=== PATIENT | male | born 1990 | race Caucasian/White ===

== ENCOUNTER 2021-08-21 19:41 | Emergency (ER) | payer MEDICAID, SELFPAY ==
--- NOTE | 2021-08-21 19:49 | ED_ITS ---
HPI - General Adult General Stated complaint: Rash/lump on eye Time Seen by Provider: 08/21/21 19:49 Source: patient Mode of arrival: ambulatory Limitations: no limitations History of Present Illness HPI narrative: Patient is a 30 year old male presenting to the emergency department today with a rash to his left eye and left arm. Patient states that he is an IV drug user and this rash has been developing for the last few weeks, getting worse. Patient states that he woke up this morning and his rash above his left eye is significantly worse. Patient states that it is throbbing and rates the pain at a 5/10. Patient denies any dizziness, lightheadedness, abdominal pain, nausea, vomiting, fever, chills, blurry vision, double vision, loss of vision, chest pain, difficulty breathing, shortness of breath, back pain, night sweats, pain with urination, increased urinary frequency, increased urinary urgency, blood in his urine or stool, syncope or a near syncopal episode, recent trauma or falls, bowel incontinence, bladder incontinence, bowel retention, bladder retention, or any other complaints at this time. Onset (ago): day(s) Location: face and upper extremity Severity: mild Severity scale (1-10): 5 Quality: aching Pain Consistency: constant Relieving factors: none Exacerbating factors: none Associated symptoms: denies other symptoms Related Data Allergies Allergy/AdvReac Type Severity Reaction Status Date / Time No Known Allergies Allergy Unverified 03/01/20 17:41 Review of Systems Constitutional: Constitutional: Reports no additional constitutional complaints, Denies chills, Denies fever(s) and Denies night sweats Eyes: Eyes: Reports no additional eye complaints, Denies blurry vision, Denies change in vision, Denies diplopia, Denies eye discharge, Denies loss of vision and Denies eye pain ENT: Denies dizziness Cardiovascular: Cardiovascular: Reports no additional cardiovascular complaints, Denies chest pain, Denies lightheadedness, Denies Loss of Consciousness and Denies dyspnea Respiratory: Respiratory: Reports no additional respiratory complaints and Denies dyspnea Gastrointestinal: Gastrointestinal: Reports no additional gastrointestinal c omplaints, Denies abdominal pain, Denies melena, Denies hematochezia, Denies change in bowel habits and Denies change in stool character Genitourinary: Genitourinary: Reports no additional male genitourinary complaints, Denies hematuria, Denies oliguria, Denies difficulty urinating, Denies dysuria, Denies urinary frequency, Denies urinary hesitancy, Denies urinary incontinence and Denies urinary urgency Musculoskeletal: Musculoskeletal: Reports no additional musculoskeletal complaints, Denies numbness and Denies tingling Integumentary/Breasts: Skin/Breast: Reports lesions and Reports rash Neurologic: Denies dizziness, Denies loss of vision, Denies numbness and Denies tingling Psychiatric: Psychiatric: Reports no additional psychiatric complaints Endocrine: Endocrine: Reports no additional endocrine complaints Hematologic/Lymphatic: Hematologic/Lymphatic: Reports no additional hematologic/lymphatic complaints Allergic/Immunologic: Allergic/Immunologic: Reports no additional gonzález rgic/immunologic complaints PMFSH Past Medical History Attestation statement: The following information was validated with the patient. Source: old records reviewed Physical Exam ED Const General: cooperative, no acute distress, alert and awake Nutritional Appearance: well nourished Orientation/consciousness: patient oriented x3 Limitations: no limitations HENMT Head: Yes normal to inspection and Yes atraumatic Ears: hearing grossly normal bilaterally and external ears normal General nose exam: Normal external nose present, no nasal discharge noted and no epistaxis Face and sinus: Yes normal facial exam, No abrasion and No laceration Mouth: Normal oral and palatal mucosa present, no drooling and no muffled voice Eyes General: appearance normal, both eyes and all related structures Periorbital: periorbital findings normal Eyelids: Yes eyelids normal Conjunctivae: conjunctivae normal Pupils: Equal, round and reactive pupils present EOM: EOMs intact bilaterally Neck Neck: Yes normal visual inspection, Yes full ROM and Yes no lymphadenopathy Chest Chest palpation & inspection: normal inspection of the chest Resp Effort & Inspection: normal respiratory effort and able to speak in complete sentences Auscultation: clear to auscultation bilaterally Cardio Rhythm: regular rhythm Heart sounds: S1 normal heart sound present GI Inspection: Yes normal to inspection Skin Other: multiple lesions, consistent with MRSA in apperance, to his bilateral forearms, the bridge of his nose, and his left eyebrow. Extensive swelling to the bridge of his nose and left eyebrow with warmth and erythema. Neuro General: patient oriented x3 and moves all extremities Cranial nerves: Yes Equal, round and reactive pupils present Cognition (Neuro): normal cognition Motor exam (neuro): 5/5 motor strength present throughout Sensory Exam: Normal double simultaneous stimulation for sensation Coordination: [id number] test normal Extrem General: Yes normal to inspection, Yes full ROM and Yes capillary refill normal Psych Appearance: grossly normal Mental Status: mental status grossly normal Affect: normal affect Attitude: cooperative Thought process: Normal thought process present Thought content: Normal thought content present Insight: Good insight present (Psych) Medical Decision Making MDM Narrative Medical decision making narrative: Patient is a 30 year old male presenting to the emergency department today with extensive MRSA skin infection. Patient's physical exam showed extensive MRSA like lesions to the bilateral upper arms, bridge of his nose, and his left eyebrow. There was also significant warmth and erythema to the bridge of his nose, his left eyebrow, and his left eyelid. Patient's presentation was consistent with a significant facial cellulitis and bilateral forearm cellulitis. I explained my physical exam findings to the patient. I answered all questions asked by the patient. I explained to the patient that he would very likely need to be admitted due to his significant infection and history of IV drug use. Patient adamantly refused any testing and stated that he wanted to leave, immediately. I explained, in detail, the risks of leaving against medical advice. Including but not limited to, , permanent disability, and permanent disfigurement. Patient verbalized understanding of the risks with leaving against medical advice and stated that he still wants to. I stressed the importance of the patient returning for the proper work up and medical care. Patient left before signing AMA paperwork. Differential Diagnosis Differential Diagnosis: sepsis, cellulitis, MRSA infection Medical Records Medical records reviewed: Yes I reviewed the patient's medical records. Discharge Plan Discharge Clinical Impression: MRSA (methicillin resistant Staphylococcus aureus), Abscess Patient Disposition: Left Against Medical Advice Instructions: MRSA (Methicillin-Resistant Staphylococcus Aureus) (ED) Stand Alone Forms: Against Medical Advice Interventions: ED Discharge Assessment Last Done: 08/21/21 20:00 Print Language: Telugu
--- NOTE | 2021-08-21 19:55 | PC.NURSE ---
Patient brought into [facility] from waiting room. Patient presents with rashes on arms, left eye red and swollen. [facility] provider present in room and explained that this is MRSA and it would need to be treated with IV antibiotics and admission. Patient states that he is leaving ED but will return. This RN returned to room to complete patients triage and review AMA paperwork, patient no longer in room. Provider aware.
== END 2021-08-21 20:00 | disposition left against medical advice (07) ==
LOC: HO.ED 20:07
PROVIDERS: Emergency Provider Emergency Medicine Emergency Medical Services
DX: A49.02 Methicillin resistant Staphylococcus aureus infection, unspecified site (principal); L03.114 Cellulitis of left upper limb; L03.113 Cellulitis of right upper limb; R21 Rash and other nonspecific skin eruption

== ENCOUNTER 2021-08-22 17:37 | Emergency (ER) | payer OTHER, SELFPAY ==
[2021-08-22 18:19] VITALS: BP 139/67; PULSE 64; RESP 18; TEMP 37.2; O2SAT 98; BMI 33.1
[2021-08-22 21:41] VITALS: BP 157/68; PULSE 42; RESP 16; TEMP 36.6; O2SAT 98
--- NOTE | 2021-08-22 21:41 | ED.SKABFB ---
HPI - Skin/Abscess/Foreign Bdy General Chief complaint: Skin/Abscess/Foreign Body Stated complaint: infection in his hand and left eye Time Seen by Provider: 08/22/21 21:32 Source: patient Mode of arrival: ambulatory Limitations: no limitations History of Present Illness complaint: rash and abscess/boil Onset (ago): day(s) (few) Tetanus up to date: yes Location: face (L eyebrow area boil he tried to pop it at home), LUE and RUE Severity: moderate Quality: burning and pruritic Pain Consistency: constant Relieving factors: none Exacerbating factors: none Context: IVDA Associated symptoms: denies other symptoms Treatments prior to arrival: attempted to drain pus at home Related Data Previous Rx's Medication Instructions Recorded cephalexin 500 mg capsule 500 mg PO TID 10 Days #30 cap 08/22/21 doxycycline monohydrate 100 mg 100 mg PO BID 10 Days #20 tab 08/22/21 tablet Allergies Allergy/AdvReac Type Severity Reaction Status Date / Time No Known Allergies Allergy Unverified 08/22/21 18:19 Review of Systems Review of Systems: Constitutional : No Fever, No Chills ENT/Mouth : No sore throat, No Rhinorrhea Eyes: No Eye Pain, No Swelling, No Redness Cardiovascular : No Chest Pain, No SOB Respiratory : No Cough, No Sputum Gastrointestinal : No Nausea, No Vomiting, No Diarrhea, No abdominal Pain Genitourinary : No Dysuria, No Hematuria Musculoskeletal : No joint pain, No Myalgias, No Joint Swelling Skin : pos Skin Lesions, positive skin rash Neuro : No Weakness, No Numbness, No Headache Psych : No Anxiety, No Depression Heme/Lymph: No Bruising, No Bleeding,No Lymphadenopathy Endocrine : No Polyuria, No Polydipsia All other systems reviewed and are negative REPLACED BY [facility] Past Medical History Attestation statement: The following information was validated with the patient. Medical History No known health problems Opiate dependence Social History Social History (Updated 08/22/21 @ 21:49 by Jennifer Godfrey DO) Patient Tobacco Use Status: Current someday Tobacco user Substance Use Type: Heroin Advance Directives: No Advance Directives Information Provided: No Physical Exam Vital Signs: Vital Signs: Last Vital Signs Temp 98 F 03/10/22 21:41 Pulse 42 L 08/22/21 21:41 Resp 16 08/22/21 21:41 BP 157/68 H 08/22/21 21:41 Pulse Ox 98 08/22/21 21:41 BMI result Body Mass Index 33.1 Appearance: Alert. Oriented X3. No acute distress. Eyes: Pupils equal, round and reactive to light. no pain with EOM - L eyebrow medial boil noted with a yellow point, around the eye is mild swelling consistent with mild periorbital cellulitis ENT: Pharynx normal. Neck: Normal inspection. Neck supple. CVS: Normal heart rate and rhythm. Pulses normal. Respiratory: No respiratory distress. Breath sounds normal. Abdomen: Soft and nontender. Skin: Skin warm and dry. Normal skin color. Normal skin turgor. Extremities: No lower extremity edema. RUE and LUE forearms excoriated scabs but no signs of abscess or cellulitis Neuro: Oriented X 3. No motor deficit. No sensory deficit. MDM - Skin/Abscess/Foreign Bdy MDM Narrative Medical decision making narrative: 30 yo male with IVDA here with bilateral forearm excoriations but no signs of secondary infection he also has L eyebrow boil and associated mild periorbital cellulitis but no eye involvement and no pain with EOM to suggest orbital cellulitis - will start on cephalexin and doxy and I/D area. He also is going to talk to our wellness coach about starting methadone. Procedures Abscess I/D Site: face Side (if applicable): left Local Anesthetic: other anesthetic (LMX) Amount of anesthesia used (mL): 2 Technique: other (area came to a point after LMX application and started to drain area was manually expressed) Amount of fluid expressed (mL): 2 Sent for culture/gram staining?: No Irrigation: No Packing used?: none Discharge Plan Discharge Clinical Impression: Abscess of skin or subcutaneous tissue Qualifiers: Site of cutaneous abscess: face Qualified Code(s): L02.01 - Cutaneous abscess of face Cellulitis, periorbital Qualifiers: Laterality: left Qualified Code(s): L03.213 - Periorbital cellulitis Patient Disposition: Home, Self-Care Instructions: Cellulitis (ED), Abscess (ED) Additional Instructions: return to ED for any worsening symptoms or concerns monitor for worsening swelling, eye pain, fevers, change in vision please call [facility] in the morning apply the mupirocin ointment twice a day for 7 days Prescriptions: New cephalexin 500 mg capsule 500 mg PO TID 10 Days Qty: 30 0RF doxycycline monohydrate 100 mg tablet 100 mg PO BID 10 Days Qty: 20 0RF
[2021-08-22] MEDS: Lidocaine 4 % Cream KIT 1 APPL TOPICAL (22:01)
[2021-08-22] MEDS: cephALEXin 500 MG CAPSULE PO (22:02)
--- NOTE | 2021-08-22 22:09 | MHC.RECOVSUP ---
? Reason for consult:Recovery Support o ? ? ?Current location: ?ED[facility]8 o ? ? ?Identified substance use concern: Heroine? - Support ? ?Intervention: o MAT started or to be started o Community resources provided o Harm reduction discussion ? Plan: o Referral to [facility] ? Additional information:?I was able to connect with patient and review his options for community resources. Patient is looking for a MAT and reading coach. I was able to give him a referral for both and shared my experience, strength and hope. Patient was receptive and looking to build his network and be a productive citizen in society.
[2021-08-22] MEDS: Mupirocin 2 % Oint 22 GM TUBE 1 APPL TOPICAL (23:23)
== END 2021-08-22 23:23 | disposition home or self-care (01) ==
PROVIDERS: Emergency Provider Emergency Medicine
DX: L02.01 Cutaneous abscess of face (principal); H05.012 Cellulitis of left orbit; F11.20 Opioid dependence, uncomplicated
CPT/HCPCS: 10060; 99283; 99284